=== PATIENT | male | born 1995 | race American Indian/Alaskan Native ===

== ENCOUNTER 2019-01-26 17:35 | Emergency (ER) | payer OTHER ==
--- NOTE | 2019-01-26 17:45 | Event Note ---
ED Screening Note Date of service: 01/26/19 Time: 17:43 ED Screening Note: 23 y/o comes in for rectal bleeding times 4 years got worst today. This initial assessment/diagnostic orders/clinical plan/treatment(s) is/are subject to change based on patients health status, clinical progression and re- assessment by fellow clinical providers in the ED. Further treatment and workup at subsequent clinical providers discretion. Patient/guardian urged not to elope from the ED as their condition may be serious if not clinically assessed and managed. Initial orders include:
[2019-01-26 18:25] LABS: Basophils % (Auto) 0.9 % (0.0-1.8); Eosinophils % (Auto) 0.5 % (0.0-4.3); Hematocrit 41.6 % (35.5-45.6); Hemoglobin 14.4 gm/dl (11.8-15.2); Lymphocytes # (Auto) 1.7 K/mm3 (1.2-5.4); Lymphocytes % (Auto) 32.9 % (13.4-35.0); Mean Corpuscular HGB Conc 35 % (32-34); Mean Corpuscular Volume 84 fl (84-94); Monocytes # (Auto) 0.2 K/mm3 (0.0-0.8); Monocytes % (Auto) 3.5 % (0.0-7.3); Platelet Count 246 K/mm3 (140-440); Red Blood Count 4.93 M/mm3 (3.65-5.03)
[2019-01-26 18:48] LABS: Alanine Aminotransferase 23 units/L (7-56); Albumin 4.4 g/dL (3.9-5); BUN/Creatinine Ratio 12; Blood Urea Nitrogen 14 mg/dL (9-20); Calcium 9.5 mg/dL (8.4-10.2); Hemolysis Index 10
[2019-01-26] MEDS ORDERED: BENADRYL IV ONE (20:26)
[2019-01-26] MEDS ORDERED: REGLAN IV ONE (20:26)
[2019-01-26] MEDS ORDERED: NACL 0.9% 1000 ML 1,000 ML IV ONE (20:28)
[2019-01-26 21:03] LABS: INR 1.07 (0.87-1.13); Partial Thromboplastin Time 27.5 Sec. (24.2-36.6)
--- NOTE | 2019-01-26 23:19 | Cat Scan Report ---
PROCEDURE: CT abdomen and pelvis with contrast. TECHNIQUE: Computerized axial tomography of the abdomen and pelvis was performed after the administr ation of IV iodinated nonionic contrast. CT DOSE LENGTH PRODUCT: Not provided mGycm HISTORY: Abdominal pain. COMPARISONS: None. FINDINGS: The lung bases are clear. There are no pleural effusions. The heart size is normal. The liver, pancre as and spleen appear normal. The gallbladder is present. There is no biliary dilatation. The adrenal glands are not enlarged. Both kidneys appear normal in size and configuration. The abdominal aorta mckoy s a normal caliber. There is no retroperitoneal adenopathy. The unopacified gastrointestinal tract is unremarkable. A normal appendix is visible. The bladder, seminal vesicles and prostate appear normal . The regional skeleton appears intact. IMPRESSION: Normal studies of the abdomen and pelvis. This document is electronically signed by Walker Rene MD., January 26 2019 11:17:23 PM ET
--- NOTE | 2019-01-26 23:35 | Emergency Department Report ---
ED Abdominal Pain HPI - General Chief Complaint: GI Bleed Stated Complaint: BLOOD IN STOOL Time Seen by Provider: 01/26/19 20:25 Source: patient Mode of arrival: Ambulatory Limitations: No Limitations - History of Present Illness Initial Comments: Ordering Physician: FANTA SOTELO NP Date of Service: 01/26/19 Procedure(s): CT abdomen pelvis w con Accession Number(s): [id number] cc: FANTA SOTELO NP PROCEDURE: CT abdomen and pelvis with contrast. TECHNIQUE: Computerized axial tomography of the abdomen and pelvis was performed after the administration of IV iodinated nonionic contrast. CT DOSE LENGTH PRODUCT: Not provided mGycm HISTORY: Abdominal pain. COMPARISONS: None. FINDINGS: The lung bases are clear. There are no pleural effusions. The heart size is normal. The liver, pancreas and spleen appear normal. The gallbladder is present. There is no biliary dilatation. The adrenal glands are not enlarged. Both kidneys appear normal in size and configuration. The abdominal aorta has a normal caliber. There is no retroperitoneal adenopathy. The unopacified gastrointestinal tract is unremarkable. A normal appendix is visible. The bladder, seminal vesicles and prostate appear normal. The regional skeleton appears intact. IMPRESSION: Normal studies of the abdomen and pelvis. This document is electronically signed by Nathanael Schultz MD., January 26 2019 11:17:23 PM ET Transcribed By: [facility] Dictated By: NATHANAEL SCHULTZ MD Electronically Authenticated By: NATHANALE SCHULTZ MD Signed Date/Time: 01/26/192318 DD/ 25 TD/TT: 01/26/192025 Complaint: abdominal pain Onset/Timin -: days(s) Location: LUQ Radiation: LUQ Migration to: LUQ Severity: moderate Severity scale (0 -10): 4 Quality: cramping Consistency: intermittent Improves With: nothing Worsens With: movement Associated Symptoms: other (blood streaked stool ). denies: nausea, vomiting, diarrhea, chills, constipation, dysuria, hematemesis, hematochezia, melena - Related Data Previous Rx's Medication Instructions Recorded Last Taken Type Famotidine [Pepcid] 20 mg PO BID #60 tablet 06/03/15 Unknown Rx traMADol [Ultram] 50 mg PO Q6HR PRN #20 tablet 06/03/15 Unknown Rx Ranitidine HCl [Zantac] 150 mg PO BID #60 tablet 01/26/19 Unknown Rx Allergies Allergy/AdvReac Type Severity Reaction Status Date / Time Sulfa (Sulfonamide AdvReac Swelling Verified 01/26/19 17:44 Antibiotics) ED Review of Systems ROS: Stated complaint: BLOOD IN STOOL Other details as noted in HPI ED Past Medical Hx - Past Medical History Previous Medical History?: No - Surgical History Past Surgical History?: No - Social History Smoking Status: Never Smoker Substance Use Type: Alcohol - Medications Home Medications: Home Medications Medication Instructions Recorded Confirmed Last Taken Type Famotidine [Pepcid] 20 mg PO BID #60 tablet 06/03/15 Unknown Rx traMADol [Ultram] 50 mg PO Q6HR PRN #20 tablet 06/03/15 Unknown Rx Ranitidine HCl [Zantac] 150 mg PO BID #60 tablet 01/26/19 Unknown Rx ED Physical Exam - General Limitations: No Limitations General appearance: alert, in no apparent distress - Head Head exam: Present: atraumatic, normocephalic - Eye Eye exam: Present: normal appearance, PERRL, EOMI Pupils: Present: normal accommodation - ENT ENT exam: Present: normal exam, mucous membranes moist, TM's normal bilaterally, normal external ear exam - Neck Neck exam: Present: normal inspection - Respiratory Respiratory exam: Present: normal lung sounds bilaterally, chest wall tenderness. Absent: respiratory distress, wheezes, stridor - Cardiovascular Cardiovascular Exam: Present: regular rate, normal rhythm, normal heart sounds. Absent: systolic murmur, diastolic murmur, rubs, gallop - GI/Abdominal GI/Abdominal exam: Present: soft, distended, tenderness (LUQ ), normal bowel sounds. Absent: guarding, rebound, rigid, bruit, hernia - Rectal Rectal exam: Present: normal inspection, other (pt decline digital exam ). Absent: black stool, bloody stool - Extremities Exam Extremities exam: Present: normal inspection, full ROM, normal capillary refill - Back Exam Back exam: Present: normal inspection, full ROM, muscle spasm, paraspinal tenderness. Absent: tenderness, CVA tenderness (R), CVA tenderness (L), vertebral tenderness - Neurological Exam Neurological exam: Present: alert, oriented X3, CN II-XII intact - Psychiatric Psychiatric exam: Present: normal affect, normal mood - Skin Skin exam: Present: warm, dry, intact, normal color. Absent: rash ED Course Vital Signs 01/26/19 17:43 Temperature 98.1 F Pulse Rate 70 Respiratory 16 Rate Blood Pressure 124/56 O2 Sat by Pulse 97 Oximetry ED Medical Decision Making - Lab Data Result diagrams: 01/26/19 18:16 01/26/19 18:16 - Radiology Data Radiology results: report reviewed, image reviewed Ordering Physician: FANTA SOTELO NP Date of Service: 01/26/19 Procedure(s): CT abdomen pelvis w con Accession Number(s): [id number] cc: FANTA SOTELO NP PROCEDURE: CT abdomen and pelvis with contrast. TECHNIQUE: Computerized axial tomography of the abdomen and pelvis was performed after the administration of IV iodinated nonionic contrast. CT DOSE LENGTH PRODUCT: Not provided mGycm HISTORY: Abdominal pain. COMPARISONS: None. FINDINGS: The lung bases are clear. There are no pleural effusions. The heart size is normal. The liver, pancreas and spleen appear normal. The gallbladder is present. There is no b iliary dilatation. The adrenal glands are not enlarged. Both kidneys appear normal in size and conf iguration. The abdominal aorta has a normal caliber. There is no retroperitoneal adenopathy. The kasia pacified gastrointestinal tract is unremarkable. A normal appendix is visible. The bladder, seminal vesicles and prostate appear normal. The regional skeleton appears intact. IMPRESSION: Normal studies of the abdomen and pelvis. This document is electronically signed by Nathanael Schultz MD., January 26 2019 11:17:23 PM ET Transcribed By: [facility] Dictated By: NATHANAEL SCHULTZ MD Electronically Authenticated By: NATHANAEL SCHULTZ MD Signed Date/Time: 01/26/19 2319 DD/ 25 TD/TT: 01/26/192025 - Medical Decision Making ct normal no bleed no mass normal abd and pelvis ct, labs all normal, no hemrrhoids, plan, zantac follow up with GI in 2-3 days return to ed if symptoms worsen, pt verbalized agreement and understanding of discharge plan, Critical care attestation.: If time is entered above; I have spent that time in minutes in the direct care of this critically ill patient, excluding procedure time. ED Disposition Clinical Impression: Blood in stool, Rectal bleeding Abdominal pain Qualifiers: Abdominal location: generalized Qualified Code(s): R10.84 - Generalized abdominal pain Disposition: - TO HOME OR SELFCARE Is pt being admited?: No Does the pt Need Aspirin: No Condition: Stable Instructions: Abdominal Pain (ED), Rectal Bleeding (ED) Prescriptions: Ranitidine HCl [Zantac] 150 mg PO BID #60 tablet Referrals: [facility] [Provider Group] - 3-5 Days Forms: Work/School Release Form(ED), Accompanied Note Time of Disposition: 23:53
[2019-01-27 00:03] VITALS: BP 109/61
== END 2019-01-27 00:03 | disposition home or self-care (01) ==
LOC: ED 17:35
DX: R10.12 Left upper quadrant pain (principal); K92.1 Melena; Z88.2 Allergy status to sulfonamides
CPT/HCPCS: 36415; 74177; 80053; 83690; 85025; 85610; 85730; 96361; 96374; 96375; 99284; J1200; J2765; J7030; Q9967